=== PATIENT | female | born 1930 | race Hispanic/Latino ===

== ENCOUNTER 2017-10-26 07:00 | Day surgery (SDC) | payer OTHER ==
[~2017-10-26] VITALS: Ht 160 cm; Wt 73.2 kg
[~2017-10-26 07:00] MED LIST: SODIUM CHLORIDE 0.9% 1000ML 1,000 ML IV ONE
[2017-10-26] MEDS ORDERED: PROPOFOL 10 MG/ML 20ML VIAL IV ONE (07:34)
[2017-10-26] MEDS ORDERED: IPRATROPIUM/ALBUTEROL SULFATE 3 ML SOLUTION IH ONE (07:58)
[2017-10-26 08:09] VITALS: BP 141/53
[2017-10-26] MEDS ORDERED: OMEP20CA10 PO (08:32)
[2017-10-26] MEDS ORDERED: CYAN50008 SL (08:32)
[2017-10-26] MEDS ORDERED: TRIA15CR10 TP (08:32)
[2017-10-26] MEDS ORDERED: LORA10CA9 PO (08:32)
[2017-10-26] MEDS ORDERED: HYDR-4060 PO (08:32)
[2017-10-26] MEDS ORDERED: DOXE6TAB3 PO (08:32)
[2017-10-26] MEDS ORDERED: LATA2.5D2 OU (08:32)
[2017-10-26] MEDS ORDERED: ONDA8TAB8 PO (08:32)
[2017-10-26] MEDS ORDERED: GABA-531 PO (08:32)
[2017-10-26] MEDS ORDERED: COMB5OS OU ×2 (08:32)
[2017-10-26] MEDS ORDERED: FERR324T PO (08:32)
[2017-10-26] MEDS ORDERED: SUCCINYLCHOLINE CHLORIDE 20 MG/ML 10 ML VIAL ONE (08:44)
[2017-10-26 09:06] VITALS: BP 94/36
== END 2017-10-26 09:38 | disposition home or self-care (01) ==
LOC: ENDO 07:00 → DAH 07:00 → ENDO 09:38
PROVIDERS: ATTEND Internal Medicine Gastroenterology
DX: K22.4 Dyskinesia of esophagus (principal); Z98.0 Intestinal bypass and anastomosis status; K21.9 Gastro-esophageal reflux disease without esophagitis; I10 Essential (primary) hypertension; D64.9 Anemia, unspecified; C46.9 Kaposi's sarcoma, unspecified; E11.9 Type 2 diabetes mellitus without complications; M19.90 Unspecified osteoarthritis, unspecified site; M10.9 Gout, unspecified; Z90.49 Acquired absence of other specified parts of digestive tract; Z90.710 Acquired absence of both cervix and uterus
CPT/HCPCS: 43239; 88305; 88312; 88341; 88342; 88360; 93005; 94640; A4606; J0330; J2704; J7030